=== PATIENT | male | born 2000 | race Caucasian/White ===

== ENCOUNTER 2023-02-22 11:39 | Emergency (ER) | payer OTHER, SELFPAY ==
[2023-02-22 11:47] VITALS: BP 120/75; PULSE 82; RESP 18; TEMP 36.7; O2SAT 99; BMI 21.4
--- NOTE | 2023-02-22 12:15 | ED_ITS ---
HPI - General Adult General Chief complaint: Laceration/Wound Stated complaint: Cut on R hand Time Seen by Provider: 02/22/23 11:49 History of Present Illness HPI narrative: Patient is a 22 year white male who cut himself on a piece of metal that was a large piece and none broke off. He cut the top of his right hand. He has got a small laceration that gapes. He is last tetanus was 2014. He is otherwise quite healthy. No range of motion deficit of the hand or fingers Related Data Home Medications Medication Instructions Recorded Confirmed No Known Home Medications 02/22/23 02/22/23 Allergies Allergy/AdvReac Type Severity Reaction Status Date / Time No Known Drug Allergies Allergy Verified 02/22/23 11:48 Review of Systems Status of ROS: Reports: 6 or more systems reviewed and unremarkable except as noted in History and below PFSH PFS Social History Non-prescribed substance use: denies use Exam Narrative: Exam Narrative: Objective: In general patient is in no apparent distress He has got a 2 cm laceration to the top of his right hand that gape slightly. He has got normal neurovascular function and tendon function of his hand, there is no tendon involvement. Const: Vital Signs, click to edit/add: Vital Signs - 24 hr 02/22/23 11:47 Temperature 98.1 F Pulse Rate [Right Pulse Oximeter] 82 Respiratory Rate 18 Blood Pressure [Ri ght Upper Arm] 120/75 Pulse Oximetry 99 Oxygen Delivery Me thod Room Air Course Vital Signs Vital signs: Initial Vital Signs Temperature 98.1 F 02/22/23 11:47 Temperature Source Temporal Artery Scan 02/22/23 11:47 Pulse Rate 82 02/22/23 11:47 Respiratory Rate 18 02/22/23 11:47 Blood Pressure 120/75 02/22/23 11:47 Blood Pressure Mean 90 02/22/23 11:47 Blood Pressure Position Sitting 02/22/23 11:47 Pulse Oximetry 99 02/22/23 11:47 Oxygen Delivery Method Room Air 02/22/23 11:47 Vital Signs Temperature 98.1 F 02/22/23 11:47 Pulse Rate 82 02/22/23 11:47 Respiratory Rate 18 02/22/23 11:47 Blood Pressure 120/75 02/22/23 11:47 Pulse Oximetry 99 02/22/23 11:47 Oxygen Delivery Method Room Air 02/22/23 11:47 Temperature 98.1 F 02/22/23 11:47 Pulse Rate 82 02/22/23 11:47 Respiratory Rate 18 02/22/23 11:47 Blood Pressure 120/75 02/22/23 11:47 Pulse Oximetry 99 02/22/23 11:47 Oxygen Delivery Method Room Air 02/22/23 11:47 Medical Decision Making MDM Narrative Medical decision making narrative: After sterile scrub with Betadine 1% xylocaine without epinephrine injected for anesthesia 3 simple bowl after updated sutures put in of 3-0 Ethilon with good skin edge approximation good hemostasis . At this point I think we need to give him an updated Tdap, he will keep this covered for 24 hours and then may soak off the bandage and cover with a bandage, suture removal in 7 days. Watch for redness infection. Discharge Plan Discharge Clinical Impression: Laceration Patient Disposition: Home w/ Parent or Adult Condition: Improved Additional Instructions: Keep dry for 24 hours then may shower and bathe as normal, may cover with a bandage as needed. Would keep it clean for the next 3-5 days. Will update her tetanus shot today, and watch for redness infection return if problems or concerns. Suture removal in 7 days Activity Level: Light activity Discharge Diet: Regular Prescriptions: No Action No Known Home Medications Follow Up/Referrals: Neri Choudhury MD [Primary Care Provider] - Stand Alone Forms: [employer] Info Instructions
[2023-02-22] MEDS: TETANUS/DIPHTH/PERTUSSIS 0.5 ML SYRINGE IM (12:30)
== END 2023-02-22 12:34 | disposition home or self-care (01) ==
LOC: ED 12:30
PROVIDERS: Emergency Provider Family Medicine; PCP Family Medicine
DX: S61.411A Laceration without foreign body of right hand, initial encounter (principal); W26.8XXA Contact with other sharp object(s), not elsewhere classified, initial encounter
CPT/HCPCS: 12001; 90471; 90715; 99283